=== PATIENT | female | born 1940 | race Caucasian/White ===

== ENCOUNTER 2017-03-21 16:39 | Emergency (ER) | payer MEDICARE, BC ==
--- NOTE | 2017-03-21 17:36 | EDM.PDOC ---
ED HPI GENERAL MEDICAL PROBLEM - General Chief Complaint: Lower Extremity Injury/Pain Stated Complaint: LEFT UPPER LEG NERVE PAIN Time Seen by Provider: 03/21/17 17:15 Source of Information: Reports: Patient, Family History Limitations: Reports: No Limitations - History of Present Illness INITIAL COMMENTS - FREE TEXT/NARRATIVE: 77-year-old female, usually very healthy and active has developed a neuropathic- like sharp pain along the lateral aspect of her left leg. No trauma, no fall, no rash over the sore area and no swelling or bruising. She has taken several medicines including Tylenol, Emir's pills and is tried topical cream and ice and heat. Now that she is in the emergency room she admits that it's getting much better. She has not had this pain in the past but she was worried about a "blood clot". Onset: Sudden (Fairly sudden onset over the last 48 hours) Severity: Moderate Associated Symptoms: Reports: No Other Symptoms Right Upper Leg Pain Score (Numeric/FACES): 10 - Related Data Allergies Allergy/AdvReac Type Severity Reaction Status Date / Time No Known Allergies Allergy Verified 03/21/17 17:10 Home Meds: Home Meds *Lung Support Otc 1 tab PO ASDIRECTED 02/27/14 [History] Ascorbic Acid/Bioflavonoids [Vit C-Bioflavonoids SA] 1 tab PO ASDIRECTED [History] B12/Levomefolate Calcium/B-6 [Qtbwvujovh-Kudrhax-Nfmmbhsu Tb] 1 each PO ASDIRECTED 02/27/14 [History] B6/FA/B12/Co Q10/Herb No.225 [Healthy Heart Complex Tablet] 1 each PO ASDIRECTED 02/27/14 [History] Calcium Carbonate [Calcium] 600 mg PO ASDIRECTED 02/27/14 [History] Cholecalciferol (Vitamin D3) [Vitamin D] 2,000 unit PO ASDIRECTED 02/27/14 [ History] Cranberry 400 mg PO ASDIRECTED 02/27/14 [History] Vit E/Vit C/Magnesium/Zinc [Ecee Plus] 1 tab PO ASDIRECTED 02/27/14 [History] Albuterol [Ventolin HFA] 2 gm IH ASDIRECTED PRN 03/21/17 [History] Fluticasone/Salmeterol [Advair 250-50 Diskus] 2 puff IH BID 03/21/17 [History] amLODIPine [Norvasc] 10 mg PO DAILY 03/21/17 [History] Past Medical History HEENT History: Reports: Cataract, Hard of Hearing Cardiovascular History: Reports: Hypertension Respiratory History: Reports: COPD [employer] History: Reports: Musculoskeletal History: Reports: Fracture - Infectious Disease History Infectious Disease History: Reports: Chicken Pox, Measles, Mumps - Past Surgical History HEENT Surgical History: Reports: Cataract Surgery Female Surgical History: Reports: Hysterectomy Social & Family History - Tobacco Use Smoking Status *Q: Former Smoker Years of Tobacco use: 54 Used Tobacco, but Quit: Yes Month Tobacco Last Used: 2009 - Caffeine Use Caffeine Use: Reports: Coffee - Alcohol Use Days Per Week of Alcohol Use: 0 - Recreational Drug Use Recreational Drug Use: No Review of Systems - Review of Systems Review Of Systems: See Below Constitutional: Denies: Fever Respiratory: Denies: Shortness of Breath, Cough Cardiovascular: Denies: Palpitations GI/Abdominal: Denies: Abdominal Pain, Nausea, Vomiting Skin: Reports: No Symptoms Psychiatric: Reports: No Symptoms ED EXAM, GENERAL - Physical Exam Exam: See Below Exam Limited By: No Limitations General Appearance: Alert, No Apparent Distress Respiratory/Chest: No Respiratory Distress, Lungs Clear GI/Abdominal: Non-Tender Extremities: Other (Passively she has full range of motion of both lower extremities, rotation of the left hip is nontender. She does have tenderness to palpation along the abductor area of the thigh but no rash or swelling. The knee is normal without effusion. She has no distal edema of the leg.) Course - Vital Signs Last Recorded V/S: Last Vital Signs Temp 99.3 F 03/21/17 17:20 Pulse 90 03/21/17 17:20 Resp 16 03/21/17 17:20 BP 157/67 H 03/21/17 17:20 Pulse Ox 94 L 03/21/17 17:20 - Re-Assessments/Exams Free Text/Narrative Re-Assessment/Exam: 03/21/17 17:34 Patient was reassured that this does not present as a blood clot and is more likely musculoskeletal or possibly a neuropathy-type pain. She was provided with 6 hydrocodone to use for extra pain control over the next 48 hours and encouraged to try to stay active. She will recheck in 2-3 days if not improving satisfactorily. Departure - Departure Time of Disposition: 17:48 Disposition: Home, Self-Care 01 Condition: Good Clinical Impression: Left leg pain - Discharge Information Instructions: Neuropathic Pain Referrals: Angel Hannon PA-C [Primary Care Provider] - Forms: ED Department Discharge Care Plan Goals: Continue with pain medications, ice or heat if it helps and add stronger pain medications as directed if needed. Try to stay active and recheck in 2-3 days if not improving satisfactorily or return sooner if worsening such as swelling, redness or rash.
== END 2017-03-21 17:48 | disposition home or self-care (01) ==
LOC: JP.ED 16:39
DX: M79.605 Pain in left leg (principal); I10 Essential (primary) hypertension; J44.9 Chronic obstructive pulmonary disease, unspecified; Z87.891 Personal history of nicotine dependence; Z79.899 Other long term (current) drug therapy
CPT/HCPCS: 99283